=== PATIENT | male | born 1990 | race Two or more races ===

== ENCOUNTER 2017-02-07 08:19 | Emergency (ER) | payer OTHER ==
[~2017-02-07] VITALS: Ht 180.3 cm; Wt 113.4 kg
[2017-02-07] MEDS ORDERED: NKM (08:26)
[2017-02-07] MEDS ORDERED: Lidocaine 1% Plain 30 ml INJ ONE (08:30)
[2017-02-07 08:31] VITALS: BP 150/85
--- NOTE | 2017-02-07 09:58 | Emergency Room Report ---
History of Present Illness General Chief Complaint: Laceration Source: Patient Present Illness HPI Patient states that he was at work. He states he was climbing down an embankment where there was several rebar poles. He states he slipped and fell and his right leg scraped against the rebar and he has lacerations there. He has no other injuries or complaints. Allergies: Coded Allergies: No Known Allergies (Unverified , 02/07/17) Patient History Past Medical History: none Social History: Denies: alcohol use, drug use, smoking Immunizations: other - Unsure on tetanus, thinks it's up to date Reviewed Nursing Documentation: PMH: Agreed, PSxH: Agreed Nursing Documentation-PMH Past Medical History: No Stated History Review of Systems All Other Systems: negative except mentioned in HPI Physical Exam Vital Signs Date Time Temp Pulse Resp B/P Pulse Ox O2 Delivery O2 Flow Rate FiO2 02/07/17 08:23 98.1 76 16 150/85 99 Room Air Sp02 EP Interpretation: reviewed, normal General Appearance: no apparent distress, alert, GCS 15, non-toxic Head: normocephalic, atraumatic Eyes: bilateral eye PERRL, bilateral eye normal inspection ENT: hearing grossly normal, normal pharynx, no angioedema, normal voice Neck: full range of motion, supple/symm/no masses Respiratory: no respiratory distress, no retraction, no accessory muscle use, speaking full sentences Gastrointestinal: normal inspection, non-distended Rectal: deferred Musculoskeletal: back normal, gait/station normal, normal range of motion, other - 4cm laceration R. gregory approx 1mm depth. 3 other superficial lacerations/abrasions of different lenghts 1-3cm. Neurologic: alert, oriented x3, responsive, motor strength/tone normal, sensory intact, speech normal Psychiatric: judgement/insight normal, memory normal, mood/affect normal, no suicidal/homicidal ideation Skin: warm/dry, well hydrated, other - See MSK exam Procedures Laceration/Wound Repair Laceration/Wound Repair : Consent: Verbal Wound Location: lower extremity Wound's Depth, Shape: superficial Wound Length (cm): 4 Wound Explored: clean Irrigated w/ Saline (ccs): 1000 Anesthesia: 1% Lidocaine Volume Anesthetic (ccs): 7 Wound Repaired With: sutures Suture Size/Type: 4:0, nylon Number of Sutures: 9 Layer Closure?: No Patient Tolerated: Well Complications: None Medical Decision Making Diagnostic Impression: Primary Impression: Lacerations of multiple sites of right leg ER Course This patient has multiple lacerations on his right gregory. There is one large 4 cm laceration that is gaping and needed repair. See my procedure note. The other lacerations are superficial and do not need to be closed. The patient is unsure on his tetanus so he was updated here in the emergency department. I will also place the patient requested antibiotics given and this was dirty metal rebar. The patient given return precautions and followup instructions. He is instructed on removal of the sutures. Last Vital Signs Date Time Temp Pulse Resp B/P Pulse Ox O2 Delivery O2 Flow Rate FiO2 02/07/17 08:31 98.1 72 16 150/85 99 Room Air Status: improved Disposition: HOME, SELF-CARE Condition: Improved Referrals: [facility] (PCP) Patient Instructions: Laceration Care, Adult EJ NOEL D.O. Feb 07, 2017 09:58
[2017-02-07] MEDS ORDERED: KEFLEX500 MG ORAL (09:59)
[2017-02-07] MEDS ORDERED: Tetanus/Diptheria/Pertussis Vaccine 0.5ml Syr IM ONE (10:00)
[2017-02-07 10:22] VITALS: BP 145/83
[2017-02-07 10:23] VITALS: BP 150/85
== END 2017-02-07 10:29 | disposition home or self-care (01) ==
LOC: EMR 08:47
DX: S81.811A Laceration without foreign body, right lower leg, initial encounter (principal); Z23 Encounter for immunization; W01.0XXA Fall on same level from slipping, tripping and stumbling without subsequent striking against object, initial encounter; Y93.9 Activity, unspecified; Y99.0 Civilian activity done for income or pay
CPT/HCPCS: 12002; 90471; 90715; 96372; 99284; J2001